=== PATIENT | male | born 1945 | race African-American/Black ===

== ENCOUNTER 2016-09-22 00:15 | Inpatient (IN) | payer MEDICARE ==
[2016-09-22] VITALS: BP 166/81
[~2016-09-22] VITALS: Ht 172.7 cm; Wt 120.5 kg
--- NOTE | 2016-09-22 01:00 | NUR ---
REC'D A DIRECT FROM [facility] @ 2469 WITH DX OF ARF, PANCREATITIS. INITIAL ASSESSMENT COMPLETED AND RECORDED PER FLOW SHEET. OF NOTE IS A WOUND ON HIS LEFT HEEL FROM A TOOTHPICK ENTERING THAT WAS EXTRACTED A WEEK AGO BUT MILL CONTROLLER WITH THE PUNCTURE SITE NOTED AND APPROX AN INCH AND A QUARTER CIRCLED AREA AROUND IT. ORIENTED TO ROOM AND CALL LIGHT, BED CONTROLS. CALL LIGHT IN REACH, WILL INITIATE PLAN OF CARE.
[2016-09-22 01:30] VITALS: BP 166/81; BMI 30.7
[2016-09-22] MEDS ORDERED: BACTRIM DS TABL1 TAB PO (02:02)
[2016-09-22] MEDS ORDERED: NOVOLIN 70/30 110 ML SC (02:03)
[2016-09-22 04:00] VITALS: BP 176/92
--- NOTE | 2016-09-22 06:30 | NUR ---
HAS MOHSEN QUIETLY SINCE RECEIVING AN ULTRAM EARLIER FOR PAIN OF 7. CONFIRMS NOW THAT HE HAD PAIN RELIEF FROM THE ULTRAM. WILL CONT WITH CURRENT PLAN OF CARE.
[2016-09-22 08:52] VITALS: BP 149/80
--- NOTE | 2016-09-22 11:09 | NUR ---
Wound Care: Left foot (bottom of heel) is a pale discolored area approximately 2cm x2cm. In the center is a small scab 0.1cm x 0.1cm. Unable to visualize wound bed or get a depth. Pt states he stepped on a toothpick about a week ago. He came to ER and was started on antibiotic, had a tetnus shot and Xray. He says nothing was seen on the xray. He also says the wound has improved since then but continues to be very tender when any pressure is applied, i.e. walking. No drainage is noted, no heat or redness. Left open to air at this time. Instructed pt to tell primary RN if he notices drainage or pain. He voiced understanding. Wound care will monitor.
--- NOTE | 2016-09-22 12:38 | NUR ---
SITTING UP IN BED A&O X4 VISITING WITH FAMILY. DENIES NEEDS
[2016-09-22 13:11] VITALS: BP 201/88
[2016-09-22 13:49] LABS: BASOPHILS 0.2 % (0-2); EOSINOPHILS 0.5 % (0-7); HEMOGLOBIN 11.8 g/dL (13.5-17.5); IMMATURE GRANULOCYTES 0.4 % (0-5); LYMPHOCYTES 20.1 % (15-50); MCH 31.8 pg (26.0-34.0); MCHC 32.8 g/dL (31.0-37.0); MEAN PLATELET VOLUME 10.9 fL (7.4-10.4); NEUTROPHILS 71.8 % (40-80); PLATELET COUNT 239 10x3/uL (130-400); RBC 3.71 10x6/uL (4.20-6.10); RDW 12.6 % (11.5-14.5); WBC 11.4 10x3/uL (4.8-10.8)
[2016-09-22 13:59] LABS: ALBUMIN 3.2 g/dL (3.4-5.0); BILIRUBIN - TOTAL 0.23 mg/dL (0.2-1.3); CALCIUM 8.3 mg/dL (8.5-10.1); CARBON DIOXIDE 21.6 mmol/L (21.0-32.0); PROTEIN - SERUM 7.5 g/dL (6.4-8.2)
[2016-09-22 14:03] LABS: ANION GAP 13.5 mmol/L (8-16); POTASSIUM - SERUM 6.1 mmol/L (3.5-5.1)
[2016-09-22 15:01] VITALS: Ht 172.7 cm; Wt 120.5 kg
[2016-09-22 15:55] LABS: CREATININE - URINE 107.2 mg/dL (30-125); PROTEIN - URINE 245.2 mg/dL (0.0-11.9)
[2016-09-22 16:30] LABS: APPEARANCE CLEAR (CLEAR); BILIRUBIN NEGATIVE (NEGATIVE); COLOR YELLOW (YELLOW); GLUCOSE NEGATIVE (NEGATIVE); KETONE NEGATIVE (NEGATIVE); LEUKOCYTE ESTERASE NEGATIVE (NEGATIVE); NITRITE NEGATIVE (NEGATIVE); PROTEIN TRACE mg/dL (NEGATIVE); UROBILINOGEN NORMAL (NORMAL)
[2016-09-22 17:59] VITALS: BP 155/96
[2016-09-23] VITALS: BP 161/92
[2016-09-23 04:00] VITALS: BP 158/63
[2016-09-23 06:08] LABS: BASOPHILS 0.2 % (0-2); EOSINOPHILS 1.2 % (0-7); HEMOGLOBIN 10.7 g/dL (13.5-17.5); IMMATURE GRANULOCYTES 0.2 % (0-5); LYMPHOCYTES 32.9 % (15-50); MCH 31.5 pg (26.0-34.0); MCHC 32.4 g/dL (31.0-37.0); MCV 97.1 fL (80.0-100.0); MEAN PLATELET VOLUME 10.6 fL (7.4-10.4); MONOCYTES 8.4 % (2-11); NEUTROPHILS 57.1 % (40-80); PLATELET COUNT 219 10x3/uL (130-400); RDW 12.7 % (11.5-14.5); WBC 9.9 10x3/uL (4.8-10.8)
[2016-09-23 06:14] LABS: HEMOGLOBIN A1C 12.7 % (4.8-6.0)
[2016-09-23 06:28] LABS: ANION GAP 15.1 mmol/L (8-16); CALCIUM 7.8 mg/dL (8.5-10.1); CREATININE - SERUM 5.9 mg/dL (0.6-1.3); LDL-HDL RATIO 2.4 ratio (1.5-3.5); MAGNESIUM - SERUM 1.7 mg/dL (1.8-2.4)
[2016-09-23 06:29] LABS: POTASSIUM - SERUM 6.1 mmol/L (3.5-5.1)
--- NOTE | 2016-09-23 07:22 | NUR ---
AM ROUNDS- PT IN BED, SLEEPING AT THIS TIME, AT BEDSIDE. CALL LIGHT IN REACH, NAD NOTED, WILL CONTINUE TO MONITOR.
--- NOTE | 2016-09-23 08:48 | NUR ---
ADMINISTERED MORNING MEDICATIONS, PT IN BED, EATING BREAKFAST. PT DENIES ANY NEEDS AT THIS TIME. CALL LIGHT IN REACH, FAMILY AT BEDSIDE, NAD NOTED, WILL CONTINUE TO MONITOR.
[2016-09-23 08:54] VITALS: BP 162/89
--- NOTE | 2016-09-23 11:26 | NUR ---
BLOOD SUGAR OF 159, 4 UNITS OF HUMULIN GIVEN PER S/S. ALSO PROVIDED PT WITH SORE THROAT SPRAY. NAD NOTED, FAMILY AT BEDSIDE, WILL CONTINUE TO MONITOR.
[2016-09-23 12:48] VITALS: BP 144/72
[2016-09-23 16:00] VITALS: BP 131/77
--- NOTE | 2016-09-23 16:32 | NUR ---
BLOOD SUGAR OF 127, NO INSULIN GIVEN PER SLIDING SCALE, ONLY GAVE 10UNITS OF NOVOLIN ORDER, PT IN BED, DENIES ANY NEEDS AT THIS TIME. CALL LIGHT IN REACH, NAD NOTED, WILL CONTINUE TO MONITOR.
[2016-09-23 19:00] VITALS: BP 171/78
--- NOTE | 2016-09-23 20:43 | NUR ---
HS MEDS GIVEN WITH FRESH ICE WATER. BS 126, NO COVERAGE NEEDED PER S/S. PT DENIES PAIN OR NEEDS, BED LOW, CL IN REACH.
--- NOTE | 2016-09-23 21:48 | NUR ---
GIANNI ALANIZ GIVEN AT PT REQUEST. AT BED SIDE.
[2016-09-24] VITALS (7 sets, daily range): BP systolic 129–172; BP diastolic 56–85
--- NOTE | 2016-09-24 03:56 | NUR ---
RESTING WITH EYES CLOSED, RESPERATIONS EVEN, NO S/S DISTRESS NOTED.
[2016-09-24 06:58] LABS: BASOPHILS 0.2 % (0-2); EOSINOPHILS 1.6 % (0-7); HEMATOCRIT 33.3 % (42.0-54.0); HEMOGLOBIN 10.8 g/dL (13.5-17.5); IMMATURE GRANULOCYTES 0.4 % (0-5); MCH 31.6 pg (26.0-34.0); MCHC 32.4 g/dL (31.0-37.0); MCV 97.4 fL (80.0-100.0); MEAN PLATELET VOLUME 10.8 fL (7.4-10.4); MONOCYTES 8.2 % (2-11); NEUTROPHILS 55.6 % (40-80); PLATELET COUNT 206 10x3/uL (130-400); RBC 3.42 10x6/uL (4.20-6.10); RDW 12.6 % (11.5-14.5); WBC 8.5 10x3/uL (4.8-10.8)
[2016-09-24 07:25] LABS: ANION GAP 16.2 mmol/L (8-16); CALCIUM 7.5 mg/dL (8.5-10.1); CARBON DIOXIDE 18.4 mmol/L (21.0-32.0); CREATININE - SERUM 5.5 mg/dL (0.6-1.3); POTASSIUM - SERUM 5.6 mmol/L (3.5-5.1)
--- NOTE | 2016-09-24 09:13 | NUR ---
ADMINISTERED MORNING MEDICATIONS, PT DENIES ANY NEEDS AT THIS TIME. CALL LIGHT IN REACH, AT BEDSIDE, NAD NOTED, WILL CONTINUE TO MONITOR.
--- NOTE | 2016-09-24 11:53 | NUR ---
BLOOD SUGAR OF 217, 8UNITS OF HUMULIN GIVEN PER S/S. NEW IVF STARTED AT THIS TIME. PT DENIES ANY NEEDS AT THIS TIME. CALL LIGHT IN REACH, FAMILY AT BEDSIDE, NAD NOTED, WILL CONTINUE TO MONITOR.
--- NOTE | 2016-09-24 16:40 | NUR ---
BLOOD SUGAR OF 160, 4UNITS OF HUMULIN GIVEN PER S/S, AND 10 OF NOVOLIN PER ORDER. PT DENIES ANY NEEDS AT THIS TIME. CALL LIGHT IN REACH, NAD NOTED, WILL CONTINUE TO MONITOR.
--- NOTE | 2016-09-24 19:41 | NUR ---
SHIFT ASSESSMENT COMPLETE. CHEST PAIN IS DENIED AT THIS TIME. LUNG SOUNDS ARE CLEAR ALL LOBES ON ROOM AIR. IV TO THE R/ARM IWTH 1/2 NS INFUSING AT 100 CC/HR NO REDDNESS NOTED. FAMILY AT SIDE WILL MONITOR
--- NOTE | 2016-09-25 02:33 | NUR ---
SLEEPING QUIETLY ON LEFT SIDE NO DISTRESS NOTED. AT SIDE
[2016-09-25 04:24] VITALS: BP 133/61
[2016-09-25 06:23] LABS: BASOPHILS 0.1 % (0-2); EOSINOPHILS 1.6 % (0-7); HEMATOCRIT 33.8 % (42.0-54.0); IMMATURE GRANULOCYTES 0.3 % (0-5); LYMPHOCYTES 31.4 % (15-50); MCH 31.5 pg (26.0-34.0); MCHC 32.5 g/dL (31.0-37.0); MCV 96.8 fL (80.0-100.0); MEAN PLATELET VOLUME 10.7 fL (7.4-10.4); MONOCYTES 8.5 % (2-11); NEUTROPHILS 58.1 % (40-80); PLATELET COUNT 218 10x3/uL (130-400); RBC 3.49 10x6/uL (4.20-6.10); RDW 12.3 % (11.5-14.5); WBC 9.4 10x3/uL (4.8-10.8)
[2016-09-25 06:58] LABS: ANION GAP 17.2 mmol/L (8-16); CALCIUM 7.3 mg/dL (8.5-10.1); CARBON DIOXIDE 18.1 mmol/L (21.0-32.0); CREATININE - SERUM 5.2 mg/dL (0.6-1.3); MAGNESIUM - SERUM 1.6 mg/dL (1.8-2.4); PHOSPHOROUS 4.9 mg/dL (2.5-4.9); POTASSIUM - SERUM 5.3 mmol/L (3.5-5.1)
--- NOTE | 2016-09-25 07:30 | NUR ---
RECEIVED PT IN BED EYES CLOSED RESP UNLABORED NAD NOTED
[2016-09-25 08:09] VITALS: BP 141/71
[2016-09-25 11:38] VITALS: BP 149/73
--- NOTE | 2016-09-25 11:54 | NUR ---
fsbs 133
[2016-09-25 15:55] VITALS: BP 163/79
[2016-09-25] MEDS ORDERED: CARAFATE1 G/10 ML PO (16:29)
[2016-09-25] MEDS ORDERED: LEVAQUIN500 MG PO (16:30)
[2016-09-25] MEDS ORDERED: SYNTHROID50 MCG PO (16:31)
[2016-09-25] MEDS ORDERED: ZOFRAN8 MG PO (16:31)
[2016-09-25] MEDS ORDERED: ENULOSE10 G/15 ML PO (16:32)
[2016-09-25] MEDS ORDERED: OMEPRAZOLE20 M1 PO (16:34)
[2016-09-25] MEDS ORDERED: MIDODRINE HCL5 MG PO (16:34)
[2016-09-25] MEDS ORDERED: CREON (PANCRELI1 CAP PO (16:35)
[2016-09-25] MEDS ORDERED: FEOSOL LIQ300 MG/5 M PO (16:41)
--- NOTE | 2016-09-25 17:05 | NUR ---
FSBS 159 REGULAR 4 UNITS GIVEN SQ RT ARM PER S/S 70/30 INSULIN 10 UNITS GIVEN SQ TO RT ARM
--- NOTE | 2016-09-25 19:29 | NUR ---
SHIFT ASSESSMENT COMPLETE WITH PAIN AND NEEDS DENIED. LUNG SOUNDS ARE CLEAR ALL LOBES WITH SKIN WARM AND DRY TO TOUCH. IV TO THE R/ARM WITH 1/2 NS INFUSING ON PUMP AT 100 CC/HR. CALL LIGHT IN REACH WITH FAMILY AT SIDE
[2016-09-25 19:46] VITALS: BP 149/82
--- NOTE | 2016-09-25 20:50 | NUR ---
ORAL MEDICATION GIVEN DIRECTED. PATIENT REQUEST ULTRAM FOR FOOT PAIN WITH ONE GIVEN ORAL FINGERSTICK BLOOD SUGAR OF 230 COVERED WITH 8 UNITS INSULIN
--- NOTE | 2016-09-25 23:19 | NUR ---
RESTING QUIETLY WITH LIGHT OFF. NO DISTRESS NOTED AT SIDE
[2016-09-25 23:38] VITALS: BP 132/66
--- NOTE | 2016-09-26 02:38 | NUR ---
SLEEPING WITH NO DISTRESS NOTED IV INFUSING DIRECTED
[2016-09-26 03:48] VITALS: BP 140/74
[2016-09-26 05:20] LABS: BASOPHILS 0.2 % (0-2); EOSINOPHILS 1.7 % (0-7); HEMATOCRIT 35.9 % (42.0-54.0); HEMOGLOBIN 11.8 g/dL (13.5-17.5); IMMATURE GRANULOCYTES 0.4 % (0-5); MCH 31.4 pg (26.0-34.0); MCHC 32.9 g/dL (31.0-37.0); MCV 95.5 fL (80.0-100.0); MEAN PLATELET VOLUME 10.5 fL (7.4-10.4); MONOCYTES 7.2 % (2-11); NEUTROPHILS 58.5 % (40-80); PLATELET COUNT 205 10x3/uL (130-400); RBC 3.76 10x6/uL (4.20-6.10); RDW 12.1 % (11.5-14.5); WBC 10.5 10x3/uL (4.8-10.8)
[2016-09-26 05:28] LABS: ANION GAP 16.8 mmol/L (8-16); CALCIUM 7.6 mg/dL (8.5-10.1); CARBON DIOXIDE 18.7 mmol/L (21.0-32.0); POTASSIUM - SERUM 5.5 mmol/L (3.5-5.1)
--- NOTE | 2016-09-26 07:30 | NUR ---
AM ROUNDS- PT IN BED, SLEEPING AT THIS TIME. CALL LIGHT IN REACH, AT BEDSIDE, NAD NOTED, WILL CONTINUE TO MONITOR.
[2016-09-26 07:42] VITALS: BP 163/92
--- NOTE | 2016-09-26 08:22 | NUR ---
ADMIMISTERED 4MG OF ZOFRAN FOR NUASEA. AND LEFT AM MEDS AT BEDSIDE FOR PT TO TAKE WHEN THE NUASEA GOES AWAY. PT UP TO SIDE OF BED, STATES PAIN MED GIVEN LAST NIGHT IS WHAT CAUSES HIM TO BE NAUSEATED STATES " I DONT WANT THAT PAIN PILL". AT BEDSIDE, NAD NOTED, WILL CONTINUE TO MONITOR.
--- NOTE | 2016-09-26 10:30 | NUR ---
VERBAL ORDERS RECEIVED FROM DR. HAIR TO PUT ORDER TO CONSULT SURGERY FOR POSSIBLE DRAINING OF LT HEEL WOUND. WILL PUT ORDERS IN.
--- NOTE | 2016-09-26 10:52 | NUR ---
Wound Care Reassessment: Wound to left heel continues to be tender to any pressure - especially when pt walks. There is still discoloration around wound but it appears as bruising instead of pale skin. I was able to get a depth -it is 0.9cm deep and a small amount of serous drainage was noticed. Pt has a surgical consult. Wound care will continue to monitor.
[2016-09-26 12:05] VITALS: BP 160/86
--- NOTE | 2016-09-26 14:14 | NUR ---
IVPB OF ROCEPHIN STARTED INFUSING AT THIS TIME. PT IN BED, DENIES ANY NEEDS AT THIS TIME. AT BEDSIDE, NAD NTOED, WILL CONTINUE TO MONITOR.
--- NOTE | 2016-09-26 14:59 | NUR ---
4MG OF ZOFRAN GIVEN FOR NUASEA. AND DAIN RN PROVIDED PT WITH A DIET LEMON KOI SODA. PT DENIES ANY OTHER NEEDS AT THIS TIME. CALL LIGHT IN REACH, NAD NOTED. CALL LIGHT IN REACH, AT BEDSIDE, WILL CONTINUE TO MONITOR.
[2016-09-26 15:40] VITALS: BP 155/83
--- NOTE | 2016-09-26 16:43 | NUR ---
BLOOD SUGAR OF 161, 4 UNIT OF HUMULIN R GIVEN PER S/S. NOVOLIN NOT AVAILABLE AT THIS TIME, CALLED PHARMACY AND SPOKE WITH BEREKET FIGUEROA HER THAT I NEED NOVOLIN. WILL BRING UP SHORTLY.
--- NOTE | 2016-09-26 19:54 | NUR ---
ASSESSMENT COMPEPLETE, A&O. RESPERATIONS EVEN ON RA. IV TO RIGHT FOREARM WITH 1/2 NS INFUSING AT 100 CC/HR, SITE CLEAN AND DRY. PT AT BED SIDE, BED LOW, CL IN REACH. PT DENIES PAIN OR NEEDS. BED LOW, CL IN REACH.
[2016-09-26 20:12] VITALS: BP 144/80
--- NOTE | 2016-09-26 21:11 | NUR ---
HS MEDS GIVEN, BS 174, COVERED PER S/S. PT DENIES PAIN OR NEEDS. BED LOW, CL IN REACH.
[2016-09-26 23:40] VITALS: BP 172/84
--- NOTE | 2016-09-26 23:48 | NUR ---
TYLENOL 650 MG GIVEN FOR C/O PAIN, POPSCILE ALSO GIVEN AT PT REQUEST.
--- NOTE | 2016-09-27 01:28 | NUR ---
RESTING WITH EYES CLOSED, RESPERATIONS EVEN, NO S/S DISTRESS NOTED.
[2016-09-27 03:31] VITALS: BP 127/58
--- NOTE | 2016-09-27 04:00 | NUR ---
BIKE DESIGNER AT BEDSIDE FOR VS. NEEDS ADDRESSED AT THIS TIME. CALL LIGHT IN REACH. WILL CONT TO MONITOR.
[2016-09-27 06:15] LABS: BASOPHILS 0.2 % (0-2); HEMATOCRIT 34.5 % (42.0-54.0); HEMOGLOBIN 11.6 g/dL (13.5-17.5); IMMATURE GRANULOCYTES 0.4 % (0-5); LYMPHOCYTES 33.2 % (15-50); MCH 31.9 pg (26.0-34.0); MCHC 33.6 g/dL (31.0-37.0); MCV 94.8 fL (80.0-100.0); MEAN PLATELET VOLUME 10.6 fL (7.4-10.4); MONOCYTES 9.2 % (2-11); PLATELET COUNT 228 10x3/uL (130-400); RBC 3.64 10x6/uL (4.20-6.10); RDW 12.1 % (11.5-14.5); WBC 8.4 10x3/uL (4.8-10.8)
[2016-09-27 06:34] LABS: ANION GAP 15.4 mmol/L (8-16); CALCIUM 7.7 mg/dL (8.5-10.1); CARBON DIOXIDE 19.2 mmol/L (21.0-32.0); CREATININE - SERUM 4.8 mg/dL (0.6-1.3); POTASSIUM - SERUM 5.6 mmol/L (3.5-5.1)
--- NOTE | 2016-09-27 07:17 | NUR ---
PT SITTING UP ON SOB READING NEWS PAPER. DENIES NEEDS AT THIS TIME WILL CONT TO MONITOR
[2016-09-27 08:31] VITALS: BP 148/76
[2016-09-27] MEDS ORDERED: NORVASC5 MG PO (09:29)
[2016-09-27] MEDS ORDERED: TOPROL XL50 MG PO (09:29)
[2016-09-27] MEDS ORDERED: VELTASSA8.4 GM PO (09:31)
[2016-09-27] MEDS ORDERED: NEOSPORIN OINTM15 GM TOPICAL (09:33)
[2016-09-27] MEDS ORDERED: MIRALAX527 GM PO (09:34)
[2016-09-27] MEDS ORDERED: HYDROCODON-ACE1 EAC7 PO (09:35)
--- NOTE | 2016-09-27 10:46 | NUR ---
Patient Name: EARL LOZANO Admission Status: Elective Accout number: [id number] Admission Date: 09-22-2016 : 1945 Admission Diagnosis:ACUTE KIDNEY FAILURE, UNSPECIFIED Attending: EVELIO Current LOS: 5 Anticipated DC Date: 09-27-2016 Planned Disposition: Home Primary Insurance: MEDICARE A & B Discharge Planning Comments: * Is the patient Alert and Oriented? Yes 0 * How many steps to enter\exit or inside your home? NONE 0 * PCP [facility] 0 * Pharmacy [facility] IN [place] 0 * Preadmission Environment Home with Family 0 * ADLs Independent 0 * Equipment Walker 0 * Other Equipment NO MEDICAL EQUIPMENT PROVIDER PREFERENCE 0 * List name and contact numbers for known caregivers / representatives who currently or will assist patient after discharge: KENNETH POND, SISTER, 0 * Community resources currently utilized None 0 * Please name any agencies selected above. NONE 0 * Additional services required to return to the preadmission environment? No 0 * Can the patient safely return to the preadmission environment? Yes 0 * Has this patient been hospitalized within the prior 30 days at any hospital? No 0 CM MET WITH PT IN ROOM TO DISCUSS DISCHARGE PLANNING AND NEEDS. PT REPORTS LIVING AT HOME INDEPENDENTLY AND ALONE, FAMILY WILL BE STAYING WITH PT AFTER HOSPITAL DISCHARGE. PT HAS A WALKER IF NEEDED AND NO MEDICAL EQUIPMENT PROVIDER PREFERENCE. PT HAS NO OUTSIDE SERVICES ASSISTING IN THE HOME. CM DISCUSSED AVAILABILITY OF HOME HEALTH, REHAB SERVICES AND MEDICAL EQUIPMENT. PT DENIES DISCHARGE NEEDS, REPORTS FAMILY IS HERE TO PICK HIM UP FOR DISCHARGE HOME. IMPORTANT MESSAGE FROM MEDICARE PROVIDED AND EXPLAINED. Evaporative Cooler Installer: Tonny Stanley
--- NOTE | 2016-09-27 11:24 | NUR ---
WENT OVER DC PAPERWORK WITH PT PT VERBALIZES UNDERSTANDING. GIVEN PT SCRIPT FOR [facility]. DC PIV WITH CATH TIP INTACT. PT FAMILY MEMBER HERE TO WIRE ROPE SLING MAKER PT. VOLUNTEER WHEELED PT OUT VIA WHEELCHAIR
[2016-09-27 12:17] LABS: HEPATITIS C ANTIBODY <0.1 (0.0-0.9)
== END 2016-09-27 11:27 | disposition home or self-care (01) | DRG 682 ==
LOC: D.M2 00:15
PROVIDERS: Internal Medicine; ADMIT Internal Medicine Nephrology
DX: N17.9 Acute kidney failure, unspecified (principal); K85.90 Acute pancreatitis without necrosis or infection, unspecified; E11.22 Type 2 diabetes mellitus with diabetic chronic kidney disease; E11.65 Type 2 diabetes mellitus with hyperglycemia; I12.9 Hypertensive chronic kidney disease with stage 1 through stage 4 chronic kidney disease, or unspecified chronic kidney disease; N18.4 Chronic kidney disease, stage 4 (severe); Z79.4 Long term (current) use of insulin; E87.5 Hyperkalemia; S91.331A Puncture wound without foreign body, right foot, initial encounter; W26.8XXA Contact with other sharp object(s), not elsewhere classified, initial encounter; K59.00 Constipation, unspecified

== ENCOUNTER 2017-05-20 10:06 | Inpatient (IN) | payer MEDICARE ==
[~2017-05-20] VITALS: Ht 172.7 cm; Wt 90.7 kg
--- NOTE | ~2017-05-20 | DS ---
PATIENT:EARL LOZANO :41 MEDICAL RECORD: [id number] DISCHARGE SUMMARY ADMISSION DATE: 05/20/17 DISCHARGE DATE: 05/25/17 HISTORY OF PRESENT ILLNESS: This is a 72-year-old gentleman that was admitted with weakness. He was determined to have hyperkalemia and CKD stage V. I tried to talk him into starting dialysis due to the danger of hyperkalemia. He did have a significant other with him here as well and she was not able to convince him to start. We went over his potassium that it could be deadly and that he could in his sleep without starting dialysis. I attempted on each visit also to have a fistula placed in his nondominant arm. I did not get much of a response from his significant other either as she seemed to be running interference with having this placed as well. We had a discussion in regards to catheter and effects of catheter dependent dialysis and that he is going to need dialysis in the very near future as he has had progressive CKD, anemia of CKD. He is alert and oriented times 3. Regular rhythm. S1 and S2. He was 157/80 on discharge, but on repeat was 132/72 with a manual cuff. He is alert, in no obvious distress. Regular rhythm. Lungs are clear. Abdomen is nontender. Trace lower extremity edema. No focal deficit. H&H 10.7/32. His creatinine was 5.7, BUN 56, his creatinine clearance is 10 to 13. Glucose has improved on admission. His urine specimen was contaminated since he was on Levaquin. We will send him home on Omnicef for 7 days. He has been insistent on going home. I was hoping to start dialysis and repeat his urine culture. I did not change any of his medications except for attempted to obtain Veltassa, but the main issue here is starting dialysis and discontinuing potassium in his diet. We will attempt to having arrange follow up with our nurse practitioner and fistula placement in the very near future. Home medications are the same. Blood pressure and sugars have improved on admission. I could not emphasize enough his need to start dialysis. Discharge to home. Renal diet. Low potassium education given multiple times. TRANSINT:[id number] Voice Confirmation ID: [id number] DOCUMENT ID: [id number] NIKO GARCIA MD at 1031 CC: [id number] DICTATION DATE: 05/24/17 0717 CRACKING UNIT OPERATOR: 05/24/17 1158 DIS IN 05/25/17 [facility] [address] [id number]
[~2017-05-20 10:06] MED LIST: BACTRIM DS TABL1 TAB PO; CARAFATE1 G/10 ML PO; CREON (PANCRELI1 CAP PO; ENULOSE10 G/15 ML PO; FEOSOL LIQ300 MG/5 M PO; HYDROCODON-ACE1 EAC7 PO; LEVAQUIN500 MG PO; MIDODRINE HCL5 MG PO; MIRALAX527 GM PO; NEOSPORIN OINTM15 GM TOPICAL; NORVASC5 MG PO; NOVOLIN 70/30 110 ML SC; OMEPRAZOLE20 M1 PO; SYNTHROID50 MCG PO; TOPROL XL50 MG PO; VELTASSA8.4 GM PO; ZOFRAN8 MG PO
[2017-05-20 14:00] VITALS: BP 149/86; BMI 29.7
[2017-05-20 14:30] LABS: BASOPHILS 0.1 % (0-2); EOSINOPHILS 0.2 % (0-7); HEMATOCRIT 34.5 % (42.0-54.0); HEMOGLOBIN 11.7 g/dL (13.5-17.5); IMMATURE GRANULOCYTES 0.6 % (0-5); LYMPHOCYTES 10.6 % (15-50); MCH 31.7 pg (26.0-34.0); MCHC 33.9 g/dL (31.0-37.0); MCV 93.5 fL (80.0-100.0); MEAN PLATELET VOLUME 10.4 fL (7.4-10.4); NEUTROPHILS 82.5 % (40-80); PLATELET COUNT 223 10x3/uL (130-400); RBC 3.69 10x6/uL (4.20-6.10); RDW 12.4 % (11.5-14.5); WBC 12.4 10x3/uL (4.8-10.8)
[2017-05-20 14:37] LABS: ANION GAP 15.7 mmol/L (8-16); CALCIUM 8.5 mg/dL (8.5-10.1); CARBON DIOXIDE 21.6 mmol/L (21.0-32.0); CREATININE - SERUM 6.3 mg/dL (0.6-1.3); PHOSPHOROUS 4.2 mg/dL (2.5-4.9); POTASSIUM - SERUM 5.3 mmol/L (3.5-5.1)
[2017-05-20 15:55] LABS: INR 1.07 (0.85-1.17); PROTIME 13.3 SECONDS (11.6-15.0)
[2017-05-20 16:00] LABS: APPEARANCE HAZY (CLEAR); BILIRUBIN NEGATIVE (NEGATIVE); COLOR YELLOW (YELLOW); GLUCOSE 1000 mg/dL (NEGATIVE); KETONE NEGATIVE (NEGATIVE); NITRITE NEGATIVE (NEGATIVE); PROTEIN 2+ mg/dL (NEGATIVE); SPECIFIC GRAVITY 1.015 (1.005-1.020); UROBILINOGEN NORMAL (NORMAL)
[2017-05-20 16:04] LABS: BACTERIA MODERATE /hpf (NONE SEEN); EPITHELIAL CELLS 0-5 /hpf (0-5); RED CELLS - URINE 0-5 /hpf (0-5)
[2017-05-20 16:05] LABS: GRANULAR CAST OCC /lpf (NONE SEEN); HYALINE CAST OCC /lpf (NONE SEEN)
[2017-05-20 21:41] VITALS: BP 145/79
[2017-05-21 01:10] VITALS: BP 128/84
[2017-05-21 04:57] LABS: BASOPHILS 0.1 % (0-2); EOSINOPHILS 0.1 % (0-7); HEMATOCRIT 33.2 % (42.0-54.0); HEMOGLOBIN 11.5 g/dL (13.5-17.5); IMMATURE GRANULOCYTES 0.8 % (0-5); LYMPHOCYTES 14.6 % (15-50); MCH 32.2 pg (26.0-34.0); MCHC 34.6 g/dL (31.0-37.0); MEAN PLATELET VOLUME 10.7 fL (7.4-10.4); MONOCYTES 9.2 % (2-11); NEUTROPHILS 75.2 % (40-80); PLATELET COUNT 224 10x3/uL (130-400); RBC 3.57 10x6/uL (4.20-6.10); RDW 12.4 % (11.5-14.5); WBC 12.8 10x3/uL (4.8-10.8)
[2017-05-21 04:58] VITALS: BP 171/89
[2017-05-21 05:22] LABS: ALBUMIN 2.8 g/dL (3.4-5.0); ANION GAP 15.9 mmol/L (8-16); BILIRUBIN - DIRECT 0.04 mg/dL (0.00-0.30); BILIRUBIN - INDIRECT 0.16 mg/dL (0.00-1.00); BILIRUBIN - TOTAL 0.2 mg/dL (0.2-1.3); CALCIUM 8.2 mg/dL (8.5-10.1); CARBON DIOXIDE 24.7 mmol/L (21.0-32.0); CREATININE - SERUM 6.2 mg/dL (0.6-1.3); POTASSIUM - SERUM 4.6 mmol/L (3.5-5.1); PROTEIN - SERUM 6.7 g/dL (6.4-8.2); THYROID STIMULATING HORMONE 2.06 uIU/mL (0.36-3.74)
[2017-05-21 08:14] VITALS: BP 142/83
[2017-05-21 10:08] VITALS: Ht 172.7 cm; Wt 90.7 kg
[2017-05-21 16:13] VITALS: BP 141/80
[2017-05-21 20:00] VITALS: BP 136/76
[2017-05-22 04:00] VITALS: BP 179/88
[2017-05-22 04:51] LABS: BASOPHILS 0.1 % (0-2); EOSINOPHILS 0.9 % (0-7); HEMATOCRIT 35.1 % (42.0-54.0); HEMOGLOBIN 11.7 g/dL (13.5-17.5); IMMATURE GRANULOCYTES 0.8 % (0-5); LYMPHOCYTES 20.5 % (15-50); MCH 32.1 pg (26.0-34.0); MCHC 33.3 g/dL (31.0-37.0); MEAN PLATELET VOLUME 10.7 fL (7.4-10.4); MONOCYTES 10.4 % (2-11); NEUTROPHILS 67.3 % (40-80); PLATELET COUNT 231 10x3/uL (130-400); RBC 3.65 10x6/uL (4.20-6.10); RDW 12.4 % (11.5-14.5); WBC 14.5 10x3/uL (4.8-10.8)
[2017-05-22 05:09] LABS: MCV 96.2 fL (80.0-100.0)
[2017-05-22 05:14] LABS: CALCIUM 8.1 mg/dL (8.5-10.1); CARBON DIOXIDE 29.6 mmol/L (21.0-32.0); CREATININE - SERUM 6.5 mg/dL (0.6-1.3); PHOSPHOROUS 4.5 mg/dL (2.5-4.9); POTASSIUM - SERUM 4.6 mmol/L (3.5-5.1)
[2017-05-22 09:12] VITALS: BP 130/72
[2017-05-22 12:10] VITALS: BP 153/79
[2017-05-22 13:17] LABS: HEPATITIS C ANTIBODY <0.1 (0.0-0.9)
[2017-05-22 17:34] VITALS: BP 154/81
[2017-05-22 21:31] VITALS: BP 159/88
[2017-05-23 00:30] VITALS: BP 124/66
[2017-05-23 04:30] VITALS: BP 177/88
[2017-05-23 06:16] LABS: BASOPHILS 0.1 % (0-2); HEMATOCRIT 34.8 % (42.0-54.0); HEMOGLOBIN 11.6 g/dL (13.5-17.5); IMMATURE GRANULOCYTES 0.7 % (0-5); LYMPHOCYTES 26.9 % (15-50); MCH 32.2 pg (26.0-34.0); MCHC 33.3 g/dL (31.0-37.0); MCV 96.7 fL (80.0-100.0); MEAN PLATELET VOLUME 10.3 fL (7.4-10.4); MONOCYTES 10.2 % (2-11); NEUTROPHILS 61.1 % (40-80); PLATELET COUNT 239 10x3/uL (130-400); RDW 12.4 % (11.5-14.5); WBC 13.2 10x3/uL (4.8-10.8)
[2017-05-23 06:33] LABS: ANION GAP 11.9 mmol/L (8-16); CALCIUM 7.3 mg/dL (8.5-10.1); CARBON DIOXIDE 27.2 mmol/L (21.0-32.0); PHOSPHOROUS 4.1 mg/dL (2.5-4.9); POTASSIUM - SERUM 4.1 mmol/L (3.5-5.1)
[2017-05-23 09:37] VITALS: BP 144/80
[2017-05-23 12:33] VITALS: BP 169/78
[2017-05-23 15:43] VITALS: BP 159/81
[2017-05-23 21:17] VITALS: BP 137/75
[2017-05-24 05:22] LABS: BASOPHILS 0.2 % (0-2); EOSINOPHILS 1.2 % (0-7); HEMOGLOBIN 10.7 g/dL (13.5-17.5); IMMATURE GRANULOCYTES 0.7 % (0-5); LYMPHOCYTES 25.1 % (15-50); MCH 32.3 pg (26.0-34.0); MCHC 33.4 g/dL (31.0-37.0); MCV 96.7 fL (80.0-100.0); MEAN PLATELET VOLUME 10.2 fL (7.4-10.4); MONOCYTES 8.4 % (2-11); NEUTROPHILS 64.4 % (40-80); PLATELET COUNT 238 10x3/uL (130-400); RBC 3.31 10x6/uL (4.20-6.10); RDW 12.5 % (11.5-14.5); WBC 12.2 10x3/uL (4.8-10.8)
[2017-05-24 05:52] LABS: ANION GAP 13.7 mmol/L (8-16); CARBON DIOXIDE 24.6 mmol/L (21.0-32.0); CREATININE - SERUM 5.7 mg/dL (0.6-1.3); PHOSPHOROUS 4.2 mg/dL (2.5-4.9); POTASSIUM - SERUM 4.3 mmol/L (3.5-5.1)
[2017-05-24 06:06] VITALS: BP 157/80
[2017-05-24] MEDS ORDERED: VELTASSA8.4 GM PO (07:12)
[2017-05-24] MEDS ORDERED: OMNICEF300 MG PO (07:14)
[2017-05-24 08:02] VITALS: BP 152/80
[2017-05-24 11:45] VITALS: BP 165/90
[2017-05-24 17:11] VITALS: BP 145/77
[2017-05-24 20:00] VITALS: BP 126/66
[2017-05-25] VITALS: BP 111/64
[2017-05-25 03:53] LABS: BASOPHILS 0.2 % (0-2); EOSINOPHILS 1.5 % (0-7); HEMATOCRIT 32.4 % (42.0-54.0); HEMOGLOBIN 10.7 g/dL (13.5-17.5); IMMATURE GRANULOCYTES 0.7 % (0-5); MCH 31.8 pg (26.0-34.0); MCV 96.1 fL (80.0-100.0); MEAN PLATELET VOLUME 9.9 fL (7.4-10.4); MONOCYTES 7.9 % (2-11); NEUTROPHILS 64.7 % (40-80); PLATELET COUNT 235 10x3/uL (130-400); RBC 3.37 10x6/uL (4.20-6.10); RDW 12.4 % (11.5-14.5); WBC 10.6 10x3/uL (4.8-10.8)
[2017-05-25 04:00] VITALS: BP 131/61
[2017-05-25 04:15] LABS: CALCIUM 7.6 mg/dL (8.5-10.1); CARBON DIOXIDE 23.3 mmol/L (21.0-32.0); CREATININE - SERUM 5.9 mg/dL (0.6-1.3); POTASSIUM - SERUM 4.3 mmol/L (3.5-5.1)
[2017-05-25 08:49] VITALS: BP 150/76
== END 2017-05-25 14:51 | disposition home or self-care (01) | DRG 683 ==
LOC: D.MS 10:06 → D.M2 13:46
PROVIDERS: Internal Medicine Nephrology
DX: N17.9 Acute kidney failure, unspecified (principal); E87.2 Acidosis; E87.5 Hyperkalemia; N18.4 Chronic kidney disease, stage 4 (severe); E11.22 Type 2 diabetes mellitus with diabetic chronic kidney disease; E11.65 Type 2 diabetes mellitus with hyperglycemia; I12.9 Hypertensive chronic kidney disease with stage 1 through stage 4 chronic kidney disease, or unspecified chronic kidney disease; Z79.4 Long term (current) use of insulin; Z87.891 Personal history of nicotine dependence; D63.1 Anemia in chronic kidney disease

== ENCOUNTER 2018-01-18 21:07 | Inpatient (IN) | payer MEDICARE ==
[~2018-01-18] VITALS: Ht 172.7 cm; Wt 84.1 kg
[~2018-01-18 21:07] MED LIST changes: +LANTUS INSULIN10 ML SC; +OMNICEF300 MG PO
[2018-01-18] MEDS ORDERED: POTASSIUM99 M1 (21:19)
[2018-01-18 22:03] LABS: BASOPHILS 0.3 % (0-2); EOSINOPHILS 1.4 % (0-7); HEMATOCRIT 36.9 % (42.0-54.0); HEMOGLOBIN 12.4 g/dL (13.5-17.5); IMMATURE GRANULOCYTES 0.4 % (0-5); LYMPHOCYTES 32.9 % (15-50); MCH 31.7 pg (26.0-34.0); MCHC 33.6 g/dL (31.0-37.0); MCV 94.4 fL (80.0-100.0); MEAN PLATELET VOLUME 10.6 fL (7.4-10.4); MONOCYTES 6.2 % (2-11); NEUTROPHILS 58.8 % (40-80); PLATELET COUNT 202 10x3/uL (130-400); RBC 3.91 10x6/uL (4.20-6.10); RDW 12.3 % (11.5-14.5); WBC 11.1 10x3/uL (4.8-10.8)
[2018-01-18 22:15] LABS: APPEARANCE CLEAR (CLEAR); BILIRUBIN NEGATIVE (NEGATIVE); COLOR STRAW (YELLOW); GLUCOSE 100 mg/dL (NEGATIVE); KETONE NEGATIVE (NEGATIVE); NITRITE NEGATIVE (NEGATIVE); PROTEIN 2+ mg/dL (NEGATIVE); SPECIFIC GRAVITY 1.015 (1.005-1.020); UROBILINOGEN NORMAL (NORMAL)
[2018-01-18 22:16] LABS: RED CELLS - URINE OCC /hpf (0-5); WHITE CELLS - URINE OCC /hpf (0-5)
[2018-01-18 22:17] LABS: ALBUMIN 3.2 g/dL (3.4-5.0); ALKALINE PHOSPHATASE 144 U/L (46-116); ALT (SGPT) 14 U/L (10-68); BILIRUBIN - TOTAL 0.17 mg/dL (0.2-1.3); CALC OSMOLALITY 296 mosm/kg (275-300); CALCIUM 8.3 mg/dL (8.5-10.1); CARBON DIOXIDE 19.5 mmol/L (21.0-32.0); CHLORIDE - SERUM 105 mmol/L (98-107); CREATININE - SERUM 7.6 mg/dL (0.6-1.3); PROTEIN - SERUM 7.4 g/dL (6.4-8.2); SODIUM 135 mmol/L (136-145); UREA NITROGEN 69 mg/dL (7-18); eGFR NON AFRICAN AMERICAN 7 mL/min (90-120)
[2018-01-18 22:18] LABS: GLUCOSE 232 mg/dL (74-106); LIPASE 971 U/L (73-393); MAGNESIUM - SERUM 1.4 mg/dL (1.8-2.4); PRO BNP 145 pg/mL (0-125); TROPONIN-I < 0.017 ng/mL (0.000-0.060)
[2018-01-18 22:30] VITALS: BP 150/79
[2018-01-18 22:43] LABS: KETONE - SERUM NEGATIVE (NEGATIVE)
[2018-01-18 23:00] VITALS: BP 171/87
[2018-01-19 00:07] VITALS: BP 160/82
[2018-01-19 01:23] VITALS: BP 160/86; BMI 28.1
[2018-01-19 05:30] LABS: BASOPHILS 0.2 % (0-2); EOSINOPHILS 1.4 % (0-7); HEMATOCRIT 32.4 % (42.0-54.0); HEMOGLOBIN 10.9 g/dL (13.5-17.5); IMMATURE GRANULOCYTES 0.3 % (0-5); LYMPHOCYTES 31.8 % (15-50); MCH 31.8 pg (26.0-34.0); MCHC 33.6 g/dL (31.0-37.0); MCV 94.5 fL (80.0-100.0); MEAN PLATELET VOLUME 10.8 fL (7.4-10.4); MONOCYTES 7.5 % (2-11); NEUTROPHILS 58.8 % (40-80); PLATELET COUNT 187 10x3/uL (130-400); RBC 3.43 10x6/uL (4.20-6.10); RDW 12.3 % (11.5-14.5); WBC 9.4 10x3/uL (4.8-10.8)
[2018-01-19 05:48] VITALS: BP 173/94
[2018-01-19 06:07] LABS: ANION GAP 17.1 mmol/L (8-16); CARBON DIOXIDE 21.1 mmol/L (21.0-32.0); CREATININE - SERUM 7.3 mg/dL (0.6-1.3); POTASSIUM - SERUM 5.2 mmol/L (3.5-5.1)
[2018-01-19 11:37] VITALS: Ht 172.7 cm; Wt 84.1 kg
[2018-01-19] MEDS ORDERED: VELTASSA8.4 GM PO (11:38)
[2018-01-19] MEDS ORDERED: CREON (PANCRELI1 CAP PO (11:39)
== END 2018-01-19 17:42 | disposition home or self-care (01) | DRG 641 ==
LOC: D.ER 21:07 → D.M2 23:05
PROVIDERS: Family Medicine; Internal Medicine
DX: E87.5 Hyperkalemia (principal); I12.0 Hypertensive chronic kidney disease with stage 5 chronic kidney disease or end stage renal disease; N18.5 Chronic kidney disease, stage 5; K86.1 Other chronic pancreatitis; E11.22 Type 2 diabetes mellitus with diabetic chronic kidney disease; E11.65 Type 2 diabetes mellitus with hyperglycemia; Z79.4 Long term (current) use of insulin